=== PATIENT | male | born 1965 | race Caucasian/White ===

== ENCOUNTER 2016-11-11 11:42 | Outpatient (CLI) | payer BC, OTHER | END 2016-11-11 23:59 | disposition home or self-care (01) | LOC: RAD 11:42 | PROVIDERS: ATTEND Family Medicine | DX: R94.31 Abnormal electrocardiogram [ECG] [EKG] (principal); R06.00 Dyspnea, unspecified; I10 Essential (primary) hypertension | CPT/HCPCS: 71020; 93307 ==

== ENCOUNTER 2017-02-01 11:33 | Outpatient (CLI) | payer BC, OTHER | END 2017-02-01 23:59 | disposition home or self-care (01) | LOC: US 11:33 | PROVIDERS: ATTEND Family Medicine | DX: K76.0 Fatty (change of) liver, not elsewhere classified (principal) | CPT/HCPCS: 76705 ==

== ENCOUNTER 2017-02-16 16:00 | Emergency (ER) | payer BC, OTHER ==
[~2017-02-16] VITALS: Ht 172.7 cm; Wt 95.3 kg
[2017-02-16] MEDS ORDERED: LOSA50TA21 PO (16:16)
--- NOTE | 2017-02-16 18:10 | NUR ---
Patient discharged to home in stable conditon. Written and verbal after care instructions given. Patient verbalizes understanding of instructions.PT WALKS IN STEADY GAIT.
[2017-02-16 18:59] VITALS: BP 119/79
== END 2017-02-16 18:10 | disposition home or self-care (01) ==
LOC: ER 16:01
DX: S06.0X0A Concussion without loss of consciousness, initial encounter (principal); M25.572 Pain in left ankle and joints of left foot; I10 Essential (primary) hypertension; W18.30XA Fall on same level, unspecified, initial encounter; Y93.89 Activity, other specified; Y92.410 Unspecified street and highway as the place of occurrence of the external cause; Y99.8 Other external cause status
CPT/HCPCS: 70450; 72125; 72220; 73502; 73610; A4663

== ENCOUNTER 2017-03-04 11:43 | Emergency (ER) | payer BC, OTHER ==
[~2017-03-04] VITALS: Ht 172.7 cm; Wt 95.3 kg
[~2017-03-04 11:43] MED LIST: LOSA50TA21 PO
--- NOTE | 2017-03-04 12:15 | NUR ---
Dr. Rendon at bedside for MSE.
[2017-03-04] MEDS ORDERED: IV NORMAL SALINE 1000 ML BAG IV ONE (12:30)
[2017-03-04 12:40] LABS: BASOPHILS # (AUTO) 0.1 K/uL (0.0-8.0); BASOPHILS % (AUTO) 1.4 % (0.0-2.0); EOSINOPHILS # (AUTO) 0.2 K/uL (0.0-0.7); EOSINOPHILS % (AUTO) 3.2 % (0.0-7.0); HEMATOCRIT 46.7 % (36.7-47.1); HEMOGLOBIN 16.4 g/dL (12.5-16.3); LYMPHOCYTES % (AUTO) 31.3 % (20.5-51.5); MEAN CORPUSCULAR HEMOGLOBIN 31.5 uug (23.8-33.4); MEAN CORPUSCULAR HGB CONC 35 g/dL (32.5-36.3); MEAN CORPUSCULAR VOLUME 89.9 fL (73.0-96.2); MONOCYTES # (AUTO) 0.6 K/uL (2.0-10.0); NEUTROPHILS # (AUTO) 3.6 K/uL (1.8-8.9); NEUTROPHILS % (AUTO) 55.1 % (38.5-71.5); PLATELET COUNT (AUTO) 231 K/uL (152-348); RED BLOOD CELL COUNT(AUTO) 5.19 MIL/uL (4.06-5.63); WHITE BLOOD COUNT (AUTO) 6.4 K/uL (3.6-10.2)
[2017-03-04 12:47] LABS: CREATININE 0.9 mg/dL (0.6-1.3); POTASSIUM 3.8 mmol/L (3.5-5.1)
[2017-03-04 12:53] LABS: BILIRUBIN,DIRECT 0.3 mg/dL (0.0-0.2); BILIRUBIN,TOTAL 1.1 mg/dL (0.2-1.0); TOTAL PROTEIN, SERUM 7.7 g/dL (6.4-8.2)
[2017-03-04 12:59] LABS: *BILIRUBIN,URIN NEGATIVE (NEGATIVE); *BLOOD, URINE NEGATIVE (NEGATIVE); *CLARITY,URINE CLEAR (CLEAR); *COLOR,URINE YELLOW (YELLOW); *KETONES,URINE NEGATIVE (NEGATIVE); *PROTEIN,URINE 1+ (NEGATIVE); LEUKOCYTE ESTERASE ,URINE NEGATIVE (NEGATIVE); NITRITE, URINE NEGATIVE (NEGATIVE)
[2017-03-04 13:06] LABS: UGLUCOSE 3+ (NEGATIVE)
[2017-03-04 13:07] LABS: BACTERIA,URINE NONE SEEN /HPF (NONE SEEN); MUCUS,URINE FEW /LPF (0-FEW); RBC,URINE 0-3 /HPF (0-3); SQUAMOUS EPITHELIAL CELL,UR FEW /HPF (NONE SEEN); WBC,URINE 0-3 /HPF (0-3)
[2017-03-04] MEDS ORDERED: METFORMIN HCL 500 MG TABLET PO ONE (14:30)
--- NOTE | 2017-03-04 14:33 | NUR ---
Patient discharged to home in stable conditon. Written and verbal after care instructions given. Patient verbalizes understanding of instructions.
[2017-03-04] MEDS ORDERED: METFORMIN HCL 500 MG TABLET ONE (14:46)
[2017-03-04 14:50] VITALS: BP 139/94
== END 2017-03-04 14:50 | disposition home or self-care (01) ==
LOC: ER 11:43
DX: E11.9 Type 2 diabetes mellitus without complications (principal); I10 Essential (primary) hypertension; Z88.8 Allergy status to other drugs, medicaments and biological substances
CPT/HCPCS: 36415; 70030-TC; 71045; 83690; 85025; 87086; 93005; A4663; J7030

== ENCOUNTER 2017-04-14 12:32 | Outpatient (CLI) | payer BC, OTHER ==
[2017-04-14 13:04] LABS: BASOPHILS # (AUTO) 0.1 K/uL (0.0-8.0); BASOPHILS % (AUTO) 1.2 % (0.0-2.0); EOSINOPHILS # (AUTO) 0.3 K/uL (0.0-0.7); EOSINOPHILS % (AUTO) 3.2 % (0.0-7.0); HEMATOCRIT 47.1 % (36.7-47.1); HEMOGLOBIN 16.1 g/dL (12.5-16.3); LYMPHOCYTES # (AUTO) 2.9 K/uL (20.0-40.0); MEAN CORPUSCULAR HEMOGLOBIN 30.8 uug (23.8-33.4); MEAN CORPUSCULAR HGB CONC 34 g/dL (32.5-36.3); MEAN CORPUSCULAR VOLUME 90.2 fL (73.0-96.2); MONOCYTES % (AUTO) 10.4 % (0.0-11.0); NEUTROPHILS # (AUTO) 5.2 K/uL (1.8-8.9); NEUTROPHILS % (AUTO) 55.2 % (38.5-71.5); PLATELET COUNT (AUTO) 274 K/uL (152-348); RED BLOOD CELL COUNT(AUTO) 5.23 MIL/uL (4.06-5.63); WHITE BLOOD COUNT (AUTO) 9.5 K/uL (3.6-10.2)
[2017-04-14 13:33] LABS: BILIRUBIN,TOTAL 0.4 mg/dL (0.2-1.0); CREATININE 0.9 mg/dL (0.6-1.3); POTASSIUM 3.7 mmol/L (3.5-5.1)
[2017-04-14 13:59] LABS: THYROID STIMULATING HORMONE 1.783 mIU/mL (0.358-3.740)
[2017-04-14 14:40] LABS: *BILIRUBIN,URIN NEGATIVE (NEGATIVE); *BLOOD, URINE NEGATIVE (NEGATIVE); *CLARITY,URINE CLEAR (CLEAR); *COLOR,URINE YELLOW (YELLOW); *KETONES,URINE NEGATIVE (NEGATIVE); *PROTEIN,URINE TRACE (NEGATIVE); *UROBILINOGEN,URINE 0.2 E.U./dl (NORMAL); LEUKOCYTE ESTERASE ,URINE NEGATIVE (NEGATIVE); NITRITE, URINE NEGATIVE (NEGATIVE); UGLUCOSE NEGATIVE (NEGATIVE)
[2017-04-14 15:03] LABS: MUCUS,URINE MODERATE /LPF (0-FEW); WBC,URINE 0-3 /HPF (0-3)
== END 2017-04-14 23:59 | disposition home or self-care (01) ==
LOC: LAB 12:32
PROVIDERS: ATTEND Family Medicine
DX: I10 Essential (primary) hypertension (principal); E55.9 Vitamin D deficiency, unspecified
CPT/HCPCS: 36415; 82306; 84443; 85025

== ENCOUNTER 2017-05-11 09:14 | Outpatient (CLI) | payer BC, OTHER ==
[2017-05-11 10:11] LABS: *BILIRUBIN,URIN NEGATIVE (NEGATIVE); *BLOOD, URINE NEGATIVE (NEGATIVE); *CLARITY,URINE CLEAR (CLEAR); *COLOR,URINE YELLOW (YELLOW); *KETONES,URINE NEGATIVE (NEGATIVE); *PROTEIN,URINE 1+ (NEGATIVE); *UROBILINOGEN,URINE 0.2 E.U./dl (NORMAL); LEUKOCYTE ESTERASE ,URINE NEGATIVE (NEGATIVE); NITRITE, URINE NEGATIVE (NEGATIVE); UGLUCOSE NEGATIVE (NEGATIVE)
[2017-05-11 10:16] LABS: BASOPHILS # (AUTO) 0.1 K/uL (0.0-8.0); BASOPHILS % (AUTO) 1.8 % (0.0-2.0); EOSINOPHILS # (AUTO) 0.3 K/uL (0.0-0.7); EOSINOPHILS % (AUTO) 3.8 % (0.0-7.0); HEMATOCRIT 48.5 % (36.7-47.1); HEMOGLOBIN 16.6 g/dL (12.5-16.3); LYMPHOCYTES # (AUTO) 2.9 K/uL (20.0-40.0); LYMPHOCYTES % (AUTO) 37.7 % (20.5-51.5); MEAN CORPUSCULAR HEMOGLOBIN 31.2 uug (23.8-33.4); MEAN CORPUSCULAR HGB CONC 34 g/dL (32.5-36.3); MEAN CORPUSCULAR VOLUME 91.2 fL (73.0-96.2); MONOCYTES # (AUTO) 0.7 K/uL (2.0-10.0); MONOCYTES % (AUTO) 8.6 % (0.0-11.0); NEUTROPHILS # (AUTO) 3.7 K/uL (1.8-8.9); NEUTROPHILS % (AUTO) 48.1 % (38.5-71.5); PLATELET COUNT (AUTO) 306 K/uL (152-348); RED BLOOD CELL COUNT(AUTO) 5.31 MIL/uL (4.06-5.63); WHITE BLOOD COUNT (AUTO) 7.6 K/uL (3.6-10.2)
[2017-05-11 10:20] LABS: BILIRUBIN,TOTAL 0.5 mg/dL (0.2-1.0); CREATININE 0.9 mg/dL (0.6-1.3); POTASSIUM 3.3 mmol/L (3.5-5.1); TOTAL PROTEIN, SERUM 8.2 g/dL (6.4-8.2)
[2017-05-11 10:29] LABS: BACTERIA,URINE FEW /HPF (NONE SEEN); RBC,URINE 0-3 /HPF (0-3); SQUAMOUS EPITHELIAL CELL,UR FEW /HPF (NONE SEEN); URINE AMORPHOUS URATE FEW /HPF; WBC,URINE 0-3 /HPF (0-3)
[2017-05-11 11:18] LABS: THYROID STIMULATING HORMONE 2.91 mIU/mL (0.358-3.740)
[2017-05-14 15:01] LABS: CREATININE, URINE 124.3; MICROALBUMIN/CREAT RATIO, UR 111.7
[2017-05-14 15:02] LABS: *MICROALBUMIN, UR 138.9
== END 2017-05-11 23:59 | disposition home or self-care (01) ==
LOC: LAB 09:14
PROVIDERS: ATTEND Family Medicine
DX: E11.9 Type 2 diabetes mellitus without complications (principal)
CPT/HCPCS: 36415; 82043; 82570; 84443; 85025

== ENCOUNTER → 2017-09-03 | Outpatient (CLI) | payer BC, OTHER ==
[2017-09-03 08:25] LABS: BASOPHILS # (AUTO) 0.2 K/uL (0.0-8.0); BASOPHILS % (AUTO) 2.4 % (0.0-2.0); EOSINOPHILS # (AUTO) 0.4 K/uL (0.0-0.7); EOSINOPHILS % (AUTO) 5.1 % (0.0-7.0); HEMATOCRIT 44.5 % (36.7-47.1); HEMOGLOBIN 15.3 g/dL (12.5-16.3); LYMPHOCYTES # (AUTO) 2.5 K/uL (20.0-40.0); MEAN CORPUSCULAR HEMOGLOBIN 32.5 uug (23.8-33.4); MEAN CORPUSCULAR HGB CONC 34 g/dL (32.5-36.3); MEAN CORPUSCULAR VOLUME 94.6 fL (73.0-96.2); MONOCYTES # (AUTO) 0.8 K/uL (2.0-10.0); MONOCYTES % (AUTO) 9.8 % (0.0-11.0); NEUTROPHILS # (AUTO) 3.9 K/uL (1.8-8.9); NEUTROPHILS % (AUTO) 50.7 % (38.5-71.5); PLATELET COUNT (AUTO) 266 K/uL (152-348); RED BLOOD CELL COUNT(AUTO) 4.71 MIL/uL (4.06-5.63); WHITE BLOOD COUNT (AUTO) 7.7 K/uL (3.6-10.2)
[2017-09-03 08:40] LABS: *BILIRUBIN,URIN NEGATIVE (NEGATIVE); *BLOOD, URINE NEGATIVE (NEGATIVE); *CLARITY,URINE CLEAR (CLEAR); *COLOR,URINE YELLOW (YELLOW); *KETONES,URINE NEGATIVE (NEGATIVE); *PROTEIN,URINE NEGATIVE (NEGATIVE); *UROBILINOGEN,URINE 0.2 E.U./dl (NORMAL); LEUKOCYTE ESTERASE ,URINE NEGATIVE (NEGATIVE); NITRITE, URINE NEGATIVE (NEGATIVE); PH,URINE 5.5 (5.0-8.0); UGLUCOSE NEGATIVE (NEGATIVE)
[2017-09-03 08:45] LABS: RBC,URINE 0-3 /HPF (0-3)
[2017-09-03 08:46] LABS: BACTERIA,URINE NONE SEEN /HPF (NONE SEEN); MUCUS,URINE FEW /LPF (0-FEW); SQUAMOUS EPITHELIAL CELL,UR FEW /HPF (NONE SEEN); WBC,URINE 0-3 /HPF (0-3)
[2017-09-03 08:47] LABS: BILIRUBIN,TOTAL 0.8 mg/dL (0.2-1.0); POTASSIUM 4.1 mmol/L (3.5-5.1); TOTAL PROTEIN, SERUM 7.8 g/dL (6.4-8.2)
[2017-09-03 08:49] LABS: THYROID STIMULATING HORMONE 3.786 mIU/mL (0.358-3.740)
== END | disposition home or self-care (01) ==
LOC: LAB 06:39
PROVIDERS: ATTEND Family Medicine
DX: I10 Essential (primary) hypertension (principal); E11.9 Type 2 diabetes mellitus without complications; E55.9 Vitamin D deficiency, unspecified
CPT/HCPCS: 82043; 82306; 82570; 84443; 85025; 87086

== ENCOUNTER 2018-01-07 09:06 | Outpatient (CLI) | payer BC, OTHER ==
[2018-01-07 09:56] LABS: BILIRUBIN,DIRECT 0.2 mg/dL (0.0-0.2); BILIRUBIN,TOTAL 0.6 mg/dL (0.2-1.0); TOTAL PROTEIN, SERUM 7.9 g/dL (6.4-8.2)
== END 2018-01-07 23:59 | disposition home or self-care (01) ==
LOC: LAB 09:06
PROVIDERS: ATTEND Family Medicine
DX: R94.5 Abnormal results of liver function studies (principal); I10 Essential (primary) hypertension
CPT/HCPCS: 36415

== ENCOUNTER 2018-06-17 07:18 | Outpatient (CLI) | payer BC, OTHER ==
[~2018-06-17 07:18] MED LIST changes: -LOSA50TA21 PO; +LOSA50TA39 PO
[2018-06-17 09:41] LABS: *RHEUMATOID FACTOR SCREEN NEGATIVE (NEGATIVE)
== END 2018-06-17 23:59 | disposition home or self-care (01) ==
LOC: LAB 07:18
PROVIDERS: ATTEND Family Medicine
DX: R94.5 Abnormal results of liver function studies (principal)
CPT/HCPCS: 36415; 86038; 86430; 87806

== ENCOUNTER 2018-09-30 10:54 | Day surgery (SDC) | payer BC, OTHER ==
[2018-09-30] MEDS ORDERED: IRR STERIL WATER FOR IRR 1000 ML BOTTLE IR ONE ×2 (10:55)
[2018-09-30] MEDS ORDERED: PROPOFOL 200 MG/20 ML BOTTLE IV ONE (10:55)
[2018-09-30] MEDS ORDERED: SIMETHICONE 40 MG/0.6 ML, 30ML BOTTLE MC ONE (10:55)
[2018-09-30 11:30] LABS: BASOPHILS # (AUTO) 0.1 K/uL (0.0-8.0); BASOPHILS % (AUTO) 0.9 % (0.0-2.0); EOSINOPHILS # (AUTO) 0.5 K/uL (0.0-0.7); EOSINOPHILS % (AUTO) 7.1 % (0.0-7.0); HEMOGLOBIN 15.5 g/dL (12.5-16.3); LYMPHOCYTES # (AUTO) 1.9 K/uL (20.0-40.0); LYMPHOCYTES % (AUTO) 27.6 % (20.5-51.5); MEAN CORPUSCULAR HEMOGLOBIN 30.8 uug (23.8-33.4); MEAN CORPUSCULAR HGB CONC 34 g/dL (32.5-36.3); MEAN CORPUSCULAR VOLUME 89.5 fL (73.0-96.2); MONOCYTES # (AUTO) 0.8 K/uL (2.0-10.0); MONOCYTES % (AUTO) 11.6 % (0.0-11.0); NEUTROPHILS # (AUTO) 3.6 K/uL (1.8-8.9); NEUTROPHILS % (AUTO) 52.8 % (38.5-71.5); PLATELET COUNT (AUTO) 293 K/uL (152-348); RED BLOOD CELL COUNT(AUTO) 5.02 MIL/uL (4.06-5.63); WHITE BLOOD COUNT (AUTO) 6.7 K/uL (3.6-10.2)
[2018-09-30 11:32] LABS: *BILIRUBIN,URIN NEGATIVE (NEGATIVE); *BLOOD, URINE NEGATIVE (NEGATIVE); *CLARITY,URINE CLEAR (CLEAR); *COLOR,URINE YELLOW (YELLOW); *KETONES,URINE NEGATIVE (NEGATIVE); *UROBILINOGEN,URINE 0.2 E.U./dl (NORMAL); LEUKOCYTE ESTERASE ,URINE NEGATIVE (NEGATIVE); NITRITE, URINE NEGATIVE (NEGATIVE); UGLUCOSE TRACE (NEGATIVE)
[2018-09-30 11:40] LABS: CREATININE 0.8 mg/dL (0.6-1.3)
[2018-09-30 11:46] LABS: BILIRUBIN,TOTAL 1.3 mg/dL (0.2-1.0); TOTAL PROTEIN, SERUM 7.9 g/dL (6.4-8.2)
[2018-09-30 11:47] LABS: BACTERIA,URINE NONE SEEN /HPF (NONE SEEN); RBC,URINE 0-3 /HPF (0-3); SQUAMOUS EPITHELIAL CELL,UR FEW /HPF (NONE SEEN); WBC,URINE 0-3 /HPF (0-3)
[2018-09-30 11:48] LABS: MUCUS,URINE FEW /LPF (0-FEW)
== END 2018-09-30 15:38 | disposition home or self-care (01) ==
LOC: DS 10:54
PROVIDERS: ATTEND Internal Medicine Gastroenterology
DX: Z12.11 Encounter for screening for malignant neoplasm of colon (principal); K57.30 Diverticulosis of large intestine without perforation or abscess without bleeding; K64.8 Other hemorrhoids; K63.5 Polyp of colon; E11.9 Type 2 diabetes mellitus without complications; I10 Essential (primary) hypertension; E66.9 Obesity, unspecified; E78.00 Pure hypercholesterolemia, unspecified; Z98.890 Other specified postprocedural states; Z79.84 Long term (current) use of oral hypoglycemic drugs; Z79.899 Other long term (current) drug therapy; Z82.49 Family history of ischemic heart disease and other diseases of the circulatory system; Z83.3 Family history of diabetes mellitus; Z68.39 Body mass index [BMI] 39.0-39.9, adult
CPT/HCPCS: 36415; 85025; 85730; 93005; A4217; A4663; J3490; J7030

== ENCOUNTER 2019-09-25 09:00 | Outpatient (CLI) | payer BC, OTHER ==
[2019-09-25 09:47] LABS: BASOPHILS % (AUTO) 0.6 % (0.0-2.0); EOSINOPHILS # (AUTO) 0.3 K/uL (0.0-0.7); EOSINOPHILS % (AUTO) 3.8 % (0.0-7.0); HEMATOCRIT 44.8 % (36.7-47.1); HEMOGLOBIN 15.2 g/dL (12.5-16.3); LYMPHOCYTES # (AUTO) 1.9 K/uL (20.0-40.0); LYMPHOCYTES % (AUTO) 27.1 % (20.5-51.5); MEAN CORPUSCULAR HGB CONC 34 g/dL (32.5-36.3); MEAN CORPUSCULAR VOLUME 91.3 fL (73.0-96.2); MONOCYTES # (AUTO) 0.8 K/uL (2.0-10.0); MONOCYTES % (AUTO) 11.8 % (0.0-11.0); NEUTROPHILS # (AUTO) 3.9 K/uL (1.8-8.9); NEUTROPHILS % (AUTO) 56.7 % (38.5-71.5); PLATELET COUNT (AUTO) 244 K/uL (152-348); RED BLOOD CELL COUNT(AUTO) 4.91 MIL/uL (4.06-5.63); WHITE BLOOD COUNT (AUTO) 6.9 K/uL (3.6-10.2)
[2019-09-25 10:04] LABS: BILIRUBIN,TOTAL 0.7 mg/dL (0.2-1.0); POTASSIUM 4.5 mmol/L (3.5-5.1); TOTAL PROTEIN, SERUM 7.4 g/dL (6.4-8.2)
[2019-09-25 10:19] LABS: THYROID STIMULATING HORMONE 3.224 mIU/mL (0.358-3.740)
== END 2019-09-25 23:59 | disposition home or self-care (01) ==
LOC: LAB 09:00
PROVIDERS: ATTEND Family Medicine
DX: I10 Essential (primary) hypertension (principal); Z00.01 Encounter for general adult medical examination with abnormal findings
CPT/HCPCS: 36415; 71046; 82306; 84153; 84443; 85025